=== PATIENT | male | born 1995 | race Caucasian/White ===

== ENCOUNTER 2016-10-23 23:38 | Emergency (ER) | payer OTHER ==
[2016-10-23 23:50] VITALS: BP 163/98; PULSE 100; RESP 20; TEMP 98; O2SAT 97
--- NOTE | 2016-10-24 00:20 | C.PDOC ---
History Of Present Illness 21 yo male come in for evaluation of Right ear laceration sustained few hours [employer] WORK[employer], while at home. Pt sts, " bend down and accidentally cut my ear with chair" . Otherwise, pt denies LOC, syncope, headache, dizziness, vertigo, ear discharge , dizziness, N/V, denies any other active complaints. Ambulate to ED for evaluation, not in any apparent distress. Time Seen by Provider: 10/23/16 23:46 Chief Complaint (Nursing): Abnormal Skin Integrity History Per: Patient Past Medical History Reviewed: Historical Data, Nursing Documentation, Vital Signs Vital Signs: Last Vital Signs Temp 98 F 10/23/16 23:42 Pulse 100 H 10/23/16 23:42 Resp 20 10/23/16 23:42 BP 163/98 H 10/23/16 23:42 Pulse Ox 97 10/23/16 23:42 - Medical History PMH: No Chronic Diseases Surgical History: No Surg Hx Family History: States: No Known Family Hx - Social History Hx Alcohol Use: No Hx Substance Use: No - Immunization History Hx Tetanus Toxoid Vaccination: Yes (2011) Hx Influenza Vaccination: No Hx Pneumococcal Vaccination: No Review Of Systems Except As Marked, All Systems Reviewed And Found Negative. ENT: Negative for: Ear Pain, Ear Discharge, Nose Pain, Nose Discharge, Nose Congestion, Mouth Pain, Mouth Swelling, Throat Pain Skin: Positive for: Lesions Neurological: Negative for: Weakness, Numbness, Altered Mental Status, Headache , Dizziness Physical Exam - Physical Exam Appears: Well, Non-toxic, No Acute Distress Skin: Normal Color, Warm, Other (small puncture-like laceration 0.5 cm length just behind Right tragus. Tragus intact. No edema, no wound bleeding or FB noted.) Head: Atraumatic, Normacephalic Eye(s): bilateral: PERRL Ear(s): Bilateral: Normal Nose: No Deformity, No Tenderness Oral Mucosa: Moist Tongue: Normal Appearing Lips: Normal Appearing Neck: No Midline Cervical Tenderness, No Paracervical Tenderness, No Step Off Deformity, Supple Neurological/Psych: Oriented x3, Normal Speech ED Course And Treatment O2 Sat by Pulse Oximetry: 97 Pulse Ox Interpretation: Normal Progress Note: On re-eavluation, pt is afebrile, hemodynamicaly stable. NOn- toxic. head: AT/NC. ENT: small laceration behing Right ear closed with skin adhesive. Tragus intact. Neck: supple. Pt advised and ref. to F/U with PMD in 2-3 days for re-eval. return to ED if any worsening ro new changes. Disposition Counseled Patient/Family Regarding: Diagnosis, Need For Followup - Disposition Referrals: [facility] [Outside] Disposition: HOME/ ROUTINE Disposition Time: 00:19 Condition: STABLE Additional Instructions: Keep wound clean, dry for 3-4 days Follow up with PMD in 2-3 days for re-evaluation. Return to ED if any sign of infection. Instructions: Laceration (ED) Forms: [employer] (Amharic) - Clinical Impression Clinical Impression: Laceration
== END 2016-10-24 00:38 | disposition home or self-care (01) ==
LOC: C.ER 23:38
DX: S01.311A Laceration without foreign body of right ear, initial encounter (principal); W22.8XXA Striking against or struck by other objects, initial encounter; Y92.009 Unspecified place in unspecified non-institutional (private) residence as the place of occurrence of the external cause

== ENCOUNTER 2017-01-06 21:50 | Emergency (ER) | payer OTHER ==
[2017-01-06 22:08] VITALS: RESP 18
[2017-01-06] MEDS ORDERED: DiphenhydrAMINE 50 mg/ml Inj IVP STA (23:01)
[2017-01-06] MEDS ORDERED: DiphenhydrAMINE 50 mg/ml Inj ONE (23:20)
[2017-01-06 23:21] LABS: BASO % 0.2 % (0.0-2.0); EOS # 0.1 K/uL (0.0-0.7); EOS % 0.9 % (0.0-4.0); HEMATOCRIT 53.1 % (35.0-51.0); LYMPH # 0.6 K/uL (1.0-4.3); LYMPH % 7.8 % (20.0-40.0); MEAN CELL VOLUME 85.4 fL (80.0-94.0); MEAN CORPUSCULAR HGB CONC 35.2 g/dL (33.0-37.0); MEAN PLATELET VOLUME 7.8 fL (7.2-11.7); MONO # 0.3 K/uL (0.0-0.8); MONO % 4.5 % (0.0-10.0); NRBC % 0.1 % (0.0-2.0); PLATELET COUNT 215 K/uL (130-400); RED CELL DISTRIBUTION WIDTH 12.8 % (11.5-14.5); WHITE BLOOD COUNT 7.7 K/uL (4.8-10.8)
[2017-01-06 23:33] LABS: CHLORIDE 100 mmol/L (98-107); SODIUM 136 mmol/L (132-148)
[2017-01-06 23:35] LABS: AST/SGOT 59 U/L (17-59); BILIRUBIN,TOTAL 1.1 mg/dL (0.2-1.3); CARBON DIOXIDE 24 mmol/L (22-30); GFR AFRICAN-AMERICAN > 60
[2017-01-06 23:36] LABS: ALB/GLOB RATIO 1.2 (1.0-2.1); ALKALINE PHOSPHATASE 81 U/L (38-126); ALT/SGPT 186 U/L (21-72); BLOOD UREA NITROGEN 13 mg/dL (9-20); GLUCOSE,RANDOM 109 mg/dL (75-110); TOTAL PROTEIN 8.4 g/dL (6.3-8.3)
[2017-01-06 23:51] LABS: INR 1.1
[2017-01-06 23:56] LABS: NEUTROPHIL 89 % (50-75); TOTAL CELLS COUNTED 100
--- NOTE | 2017-01-07 00:06 | CT ---
EXAM: CT Head Without Intravenous Contrast CLINICAL HISTORY: 21 years old, male; Pain; Headache and other: Elevated BP; Additional info: Headache, elevated BP TECHNIQUE: Axial computed tomography images of the head/brain without intravenous contrast. All CT scans at this facility use one or more dose reduction techniques, viz.: automated exposure control; ma/kV adjustment per patient size (including targeted exams where dose is matched to indication; i.e. head); or iterative reconstruction technique. Coronal and sagittal reformatted images were created and reviewed. COMPARISON: No relevant prior studies available. FINDINGS: Brain: No intracranial hemorrhage. No mass. Decreased attenuation within white matter of RIGHT frontal region. Grossly preserved mckeon-white matter differentiation. Ventricles: No hydrocephalus. Cavum septum pellucidum and vergae. Bones/joints: No acute fracture. Soft tissues: Unremarkable. Sinuses: No acute sinusitis. Mastoid air cells: No mastoid effusion. Orbits: Unremarkable as visualized. IMPRESSION: 1. Nonspecific white matter changes. Recommend MRI for further evaluation.
[2017-01-07 00:21] VITALS: BP 132/84; PULSE 66; TEMP 97.5
[2017-01-07 00:24] VITALS: O2SAT 97
--- NOTE | 2017-01-07 00:24 | C.PDOC ---
History Of Present Illness 21 y/o male presents to the ER with past 1 week history of an intermittent headache. Patient states that headache starts in posterior neck and radiates towards right baptism. Patient also reports gradual intermittent pressure in their head. Patient denies any fever, URI, ear pain, sore throat, head injury, nausea, or vomiting. Has no other complaints. Of note, patient's BP is noted to be elevated, patient's mother states that the patient has had prior elevated BP readings in the past year and he never f/u with his pmd. Denies any dizziness, CP, SOB or palpitations. Time Seen by Provider: 01/06/17 22:17 Chief Complaint (Nursing): Headache History/Exam Limitations: no limitations Onset/Duration Of Symptoms: Days (7), Intermittent Episodes Severity: None Quality: Pressure Preceeding Symptoms: None Associated Symptoms: denies: Nausea, Vomiting Recent travel outside of the [place]: No Past Medical History Reviewed: Historical Data, Nursing Documentation, Vital Signs Vital Signs: Last Vital Signs Temp 97.5 F L 01/07/17 00:17 Pulse 66 01/07/17 00:17 Resp 18 01/07/17 00:17 BP 132/84 01/07/17 00:17 Pulse Ox 97 01/07/17 02:42 - Medical History PMH: No Chronic Diseases Surgical History: No Surg Hx Family History: States: No Known Family Hx - Social History Hx Alcohol Use: No Hx Substance Use: No - Immunization History Hx Tetanus Toxoid Vaccination: Yes (2011) Hx Influenza Vaccination: No Hx Pneumococcal Vaccination: No Review Of Systems Except As Marked, All Systems Reviewed And Found Negative. Constitutional: Negative for: Fever, Weakness, Malaise Eyes: Negative for: Pain, Vision Change Cardiovascular: Negative for: Chest Pain, Palpitations, Edema Respiratory: Negative for: Cough, Shortness of Breath, Wheezing Gastrointestinal: Negative for: Nausea, Vomiting, Abdominal Pain Musculoskeletal: Positive for: Neck Pain (posterior). Negative for: Back Pain Neurological: Positive for: Headache (gradual intermittent pressure). Negative for: Weakness, Numbness, Dizziness Physical Exam - Physical Exam Appears: Well, Non-toxic, No Acute Distress Skin: Normal Color, Warm, Dry Head: Atraumatic, Normacephalic Eye(s): bilateral: Normal Inspection, PERRL, EOMI Ear(s): Bilateral: Normal Nose: Normal, No Discharge Oral Mucosa: Moist Throat: Normal, No Erythema, No Exudate Neck: Normal, Normal ROM, No Midline Cervical Tenderness, No Paracervical Tenderness, Supple, Other Lymphatic: No Adenopathy Chest: Symmetrical, No Tenderness Cardiovascular: Rhythm Regular Respiratory: Normal Breath Sounds, No Rales, No Rhonchi, No Wheezing Gastrointestinal/Abdominal: Normal Exam, Soft, No Tenderness Back: Normal Inspection, No Vertebral Tenderness Extremity: Normal ROM, No Tenderness, No Swelling Neurological/Psych: Oriented x3, Normal Speech, Normal Cognition, Normal Cranial Nerves, Normal Motor, Normal Sensation Gait: Steady ED Course And Treatment - Laboratory Results Result Diagrams: 01/06/17 23:17 01/06/17 23:17 Lab Interpretation: Normal ECG: Interpreted By Me ECG Rhythm: Sinus Rhythm ECG Interpretation: Normal, No Acute Changes O2 Sat by Pulse Oximetry: 97 (room air) Pulse Ox Interpretation: Normal - Radiology CXR: Interpreted by Me CXR Interpretation: Yes: No Acute Disease - CT Scan/US CT head w/o contrast Other Rad Studies (CT/US): Read By Radiologist CT/US Interpretation: FINDINGS: Brain: No intracranial hemorrhage. No mass. Decreased attenuation within white matter of RIGHT. frontal region. Grossly preserved mckeon-white matter differentiation. Ventricles: No hydrocephalus. Cavum septum pellucidum and vergae. Bones/joints: No acute fracture. Soft tissues: Unremarkable. Sinuses: No acute sinusitis. Mastoid air cells: No mastoid effusion. Orbits: Unremarkable as visualized. IMPRESSION: 1. Nonspecific white matter changes. Recommend MRI for further evaluation. Dictated and Authenticated by: Cole Campbell MD. 01/07/2017 12:05 AM Eastern Time ([place] & [place]) Progress Note: Plans. EKG,Chest X ray, CT head w/o contrast,Blood tests. Meds- . Benadryl, Reglan Medical Decision Making Medical Decision Makin yo M c/o intermittent R sided headache x 1 week. DDx : migraine headache vs tension headache, consider HTN urgency Repeat VS : T 97.8 P 84 BP 161/100 R 18 O2sat : 97%RA Plan : Considering continued elevated BP and pt's c/o headache, labs, EKG, CXR and CT head ordered. Patient medicated with reglan 10 mg IV and benadryl 25 mg IV. Re-evaluation & disposition : On re-evaluation, pt reports significant resolution of his headache. On exam, pt is laying in bed comfortably in no acute distress, repeat neuro exam shows no focal findings. VS : T 97.5 P 66 BP 132/84 R 18 O2sat 96%RA. Lab, EKG, CXR and CT head results d/w the patient and his mother in great detail. Advised on the need for immediate f/u with his pmd in 1-2 days without fail especially regarding his BP and CT findings. Patient verbalize understanding of the need to f/u. Disposition Counseled Patient/Family Regarding: Studies Performed, Diagnosis, Need For Followup, Rx Given - Disposition Disposition: HOME/ ROUTINE Disposition Time: 00:15 Condition: STABLE Additional Instructions: Follow up with your pmd in 2 days without fail. Take medications as prescribed. Return to the ER at any time for any new or worsening symptoms. Prescriptions: Metoclopramide HCl [Reglan] 10 mg PO QID PRN #20 tablet PRN Reason: Headache Instructions: Acute Headache (ED), Hypertension (ED) Forms: [employer] ([employer]), School Excuse, Work Excuse Print Language: FRENCH - Clinical Impression Clinical Impression: Headache, High blood pressure - PA / HAND I TUBE BENDER / Resident Statement MD/DO has reviewed & agrees with the documentation as recorded. - Scribe Statement The provider has reviewed the documentation as recorded by the Scribnichelle Bhatti All medical record entries made by the Berny were at my direction and personally dictated by me. I have reviewed the chart and agree that the record accurately reflects my personal performance of the history, physical exam, medical decision making, and the department course for this patient. I have also personally directed, reviewed, and agree with the discharge instructions and disposition.
--- NOTE | 2017-01-07 10:41 | RAD ---
HISTORY: elevated bp COMPARISON: None available. TECHNIQUE: Chest PA and lateral FINDINGS: LUNGS: Mild bibasilar atelectasis. Please note that chest x-ray has limited sensitivity for the detection of pulmonary masses. PLEURA: No significant pleural effusion identified. No definite pneumothorax . CARDIOVASCULAR: Heart size appears within normal limits. OSSEOUS STRUCTURES: No acute osseous abnormality identified. VISUALIZED UPPER ABDOMEN: Unremarkable. OTHER FINDINGS: None. IMPRESSION: Mild bibasilar atelectasis.
--- NOTE | 2017-01-08 21:23 | CARD ---
APPROVED REPORT EKG Measurement Heart [id number] <Conclusion> Normal sinus rhythm Normal ECG
== END 2017-01-07 00:45 | disposition home or self-care (01) ==
LOC: C.ER 21:50
DX: I10 Essential (primary) hypertension (principal); R51 Headache
CPT/HCPCS: 70450; 71020; 80053; 85025; 85610; 85730; 93005; 96374; 96375; 99284; J1200; J2765

== ENCOUNTER 2017-01-24 21:46 | Emergency (ER) | payer OTHER ==
[2017-01-24 22:10] VITALS: BP 137/89; PULSE 84; RESP 14; TEMP 97.3; O2SAT 97
--- NOTE | 2017-01-24 23:37 | C.PDOC ---
History Of Present Illness 21 year old male presents to the ED with complaints of pain, swelling, and discoloration to the left great toe occurring after stubbing toe on a tree stump earlier today. Patient denies numbness or other injuries. Time Seen by Provider: 01/24/17 22:20 Chief Complaint (Nursing): Lower Extremity Problem/Injury History Per: Patient History/Exam Limitations: no limitations Onset/Duration Of Symptoms: Hrs Current Symptoms Are (Timing): Still Present Recent travel outside of the [place]: No - Ankle/Foot Description Of Injury: Struck Against Object (tree stump ) Past Medical History Reviewed: Historical Data, Nursing Documentation, Vital Signs Vital Signs: Last Vital Signs Temp 97.3 F L 01/24/17 22:07 Pulse 84 01/24/17 22:07 Resp 14 01/24/17 22:07 BP 137/89 01/24/17 22:07 Pulse Ox 97 01/25/17 00:36 Family History: States: Unknown Family Hx - Social History Hx Alcohol Use: No Hx Substance Use: No - Immunization History Hx Tetanus Toxoid Vaccination: Yes (2011) Hx Influenza Vaccination: No Hx Pneumococcal Vaccination: No Review Of Systems Constitutional: Negative for: Fever Musculoskeletal: Positive for: Other (left great toe pain ). Negative for: Leg Pain, Foot Pain Neurological: Negative for: Numbness Physical Exam - Physical Exam Appears: Non-toxic, No Acute Distress Skin: Warm, Dry Head: Atraumatic, Normacephalic Eye(s): bilateral: Normal Inspection, PERRL, EOMI Extremity: Normal ROM, Tenderness (of left great toe ), No Pedal Edema, No Calf Tenderness, Capillary Refill (good capillary refill, less than two seconds ), No Deformity, Swelling (of left great toe ), Other (ecchymosis to the left great toe ) Pulses: Left Dorsalis Pedis: Normal, Right Dorsalis Pedis: Normal Neurological/Psych: Oriented x3, Normal Motor, Normal Sensation Gait: Steady ED Course And Treatment O2 Sat by Pulse Oximetry: 97 (RA) Pulse Ox Interpretation: Normal - Other Rad Left foot X-Ray X-Ray: Interpreted by Me, Viewed By Me Interpretation: Non-displaced fracture of the first IP joint. Progress Note: Left foot X-Ray was ordered. Pt placed in orthopedic shoe and addvised Podiatry follow up. Return precautions discussed and understood by pt. Pt was ambulatory at discharge Disposition Counseled Patient/Family Regarding: Diagnosis, Need For Followup, Rx Given - Disposition Referrals: Podiatry Clinic [Outside] [facility] [Outside] Disposition: HOME/ ROUTINE Disposition Time: 23:35 Condition: STABLE Additional Instructions: Leg elevation Take Advil or motrin for pain Follow up with Information Lead- Call for appointment Return to ER if worse Instructions: Toe Fracture (ED) Forms: [employer] (Guyanese) - Clinical Impression Clinical Impression: Fracture of toe of left foot - PA / TILE HELPER / Resident Statement MD/DO has reviewed & agrees with the documentation as recorded. - Scribe Statement The provider has reviewed the documentation as recorded by the Ruthyibnichelle Narayanan All medical record entries made by the Berny were at my direction and personally dictated by me. I have reviewed the chart and agree that the record accurately reflects my personal performance of the history, physical exam, medical decision making, and the department course for this patient. I have also personally directed, reviewed, and agree with the discharge instructions and disposition.
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
== END 2017-01-24 23:43 | disposition home or self-care (01) ==
LOC: C.ER 21:46
DX: S92.422A Displaced fracture of distal phalanx of left great toe, initial encounter for closed fracture (principal); W22.8XXA Striking against or struck by other objects, initial encounter

== ENCOUNTER 2017-12-27 21:55 | Emergency (ER) | payer OTHER ==
[2017-12-27 22:13] VITALS: BP 168/97; PULSE 75; RESP 18; TEMP 98; O2SAT 98
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
== END 2017-12-27 23:24 | disposition home or self-care (01) ==
LOC: C.ER 21:55
DX: S80.02XA Contusion of left knee, initial encounter (principal); S93.402A Sprain of unspecified ligament of left ankle, initial encounter; V49.9XXA Car occupant (driver) (passenger) injured in unspecified traffic accident, initial encounter